=== PATIENT | female | born 1950 | race Asian ===

== ENCOUNTER 2016-10-06 12:08 | Emergency (ER) | payer OTHER ==
[2016-10-06 12:22] VITALS: RESP 18
--- NOTE | 2016-10-06 12:41 | ED ---
General Adult HPI - General Chief complaint: ENT Stated complaint: ENT Time Seen by Provider: 10/06/16 12:34 Source: patient, family, RN notes reviewed Mode of arrival: ambulatory - History of Present Illness Initial comments: Patient 65-year-old female who presents emergency room today with a chief complaint of "buzzing" to the right ear. Does admit that she is felt this noise on and off over the last week. States seems to happen daily but not all the time. Patient does admit that it's been itchy. She states that she was using a Q-tip to try to clean out the ear. She denies any drainage discharge. She denies any other complaints or symptoms. Patient denies any recent fever, chills, shortness of breath, chest pain, back pain, abdominal pain, nausea or vomiting, numbness or tingling, dysuria or hematuria, constipation or diarrhea, headaches or visual changes, or any other complaints. - Related Data Previous Rx's Medication Instructions Recorded Zybtmtcq-[id number]-[id number] Otic 2 drops RIGHT EAR TID 7 Days 10/06/16 [Cortisporin Otic Soln] amLODIPine [Norvasc] 5 mg PO DAILY #14 tab 10/06/16 Allergies Allergy/AdvReac Type Severity Reaction Status Date / Time No Known Allergies Allergy Verified 10/06/16 12:42 Review of Systems ROS Statement: Those systems with pertinent positive or pertinent negative responses have been documented in the HPI. ROS Other: All systems not noted in ROS Statement are negative. Past Medical History Past Medical History: No Reported History History of Any Multi-Drug Resistant Organisms: None Reported Past Surgical History: Joint Replacement Additional Past Surgical History / Comment(s): nose, teeth extraction Past Psychological History: No Psychological Hx Reported Smoking Status: Never smoker Past Alcohol Use History: None Reported Past Drug Use History: None Reported General Exam - General Exam Comments Initial Comments: General: The patient is awake and alert, in no distress, and does not appear acutely ill. Eye: Pupils are equal, round and reactive to light, extra-ocular movements are intact. No nystagmus. There is normal conjunctiva bilaterally. No signs of icterus. Ears, nose, mouth and throat: There are moist mucous membranes and no oral lesions. Left TM clear. Right TM does show small amount of wax. Can't see behind no sign of infection. TM clear. Patient does have small scabbed area outer ear with some redness irritation. Neck: The neck is supple. Cardiovascular: There is a regular rate and rhythm. No murmur, rub or gallop is appreciated. Respiratory: Lungs are clear to auscultation, respirations are non-labored, breath sounds are equal. No wheezes, stridor, rales, or rhonchi. Musculoskeletal: Normal ROM, no tenderness. Strength 5/5. Sensation intact. Pulses equal bilaterally 2+. Neurological: A&O x 3. CN II-XII intact, There are no obvious motor or sensory deficits. Coordination appears grossly intact. Speech is normal. Skin: Skin is warm and dry and no rashes or lesions are noted. Psychiatric: Cooperative, appropriate mood & affect, normal judgment. Course Vital Signs 10/06/16 10/06/16 12:18 12:42 Temperature 98.8 F 98.3 F Pulse Rate 78 74 Respiratory 18 18 Rate Blood Pressure 191/89 185/82 O2 Sat by Pulse 100 96 Oximetry Medical Decision Making - Medical Decision Making Patient's blood pressure remains elevated here in the emergency room. Was discussed about having blood pressure rechecked through the family doctor. Patient will be given a prescription for blood pressure medication to start. Patient is advised follow-up the family doctor the next 2 days. Advised return if any symptoms increase or worsen. Patient also given information for ENT to follow-up with as well. Disposition Clinical Impression: Elevated blood pressure reading, Buzzing in ear Disposition: HOME SELF-CARE Condition: Good Instructions: Hypertension (ED) Additional Instructions: Please use medications as prescribed and follow-up the family doctor and ENT as discussed. Please return to emergency room if any symptoms increase or worsen or for any other concerns. Prescriptions: Udgdpmoy-Rebzejmjj-Hr Otic [Cortisporin Otic Soln] 2 drops RIGHT EAR TID 7 Days amLODIPine [Norvasc] 5 mg PO DAILY #14 tab Referrals: Teressa Canada MD [Primary Care Provider] - 1-2 days Santiago Yadav MD [STAFF PHYSICIAN] - 1-2 days Time of Disposition: 12:54
[2016-10-06 12:44] VITALS: TEMP 98.3
[2016-10-06 13:05] VITALS: BP 168/79; PULSE 76
== END 2016-10-06 13:05 | disposition home or self-care (01) ==
LOC: EC 12:08
DX: I10 Essential (primary) hypertension (principal); H93.8X1 Other specified disorders of right ear; Z79.899 Other long term (current) drug therapy
CPT/HCPCS: 99282

== ENCOUNTER 2016-12-03 19:20 | Emergency (ER) | payer OTHER ==
[2016-12-03 19:26] VITALS: BP 141/99; PULSE 79; RESP 18; TEMP 97.1
--- NOTE | 2016-12-03 19:42 | ED ---
Upper Extremity HPI - General Chief Complaint: Extremity Injury, Upper Stated Complaint: fingers locking up Time Seen by Provider: 12/03/16 19:27 Source: patient, family Mode of arrival: ambulatory Limitations: no limitations, language barrier - History of Present Illness MD Complaint: Injury to:: left, finger (4th) Handedness: right Improves With: none Worsens With: none - Related Data Home Medications Medication Instructions Recorded Confirmed No Known Home Medications [No 12/03/16 12/03/16 Known Home Medications] Allergies Allergy/AdvReac Type Severity Reaction Status Date / Time No Known Allergies Allergy Verified 12/03/16 19:25 Review of Systems ROS Statement: Those systems with pertinent positive or pertinent negative responses have been documented in the HPI. ROS Other: All systems not noted in ROS Statement are negative. Musculoskeletal: Reports: other (Fourth digit locks some flexion) Neurological: Denies: weakness, numbness, paresthesias Past Medical History Past Medical History: No Reported History History of Any Multi-Drug Resistant Organisms: None Reported Past Surgical History: Joint Replacement, Orthopedic Surgery Additional Past Surgical History / Comment(s): nose, teeth extraction Past Psychological History: No Psychological Hx Reported Smoking Status: Never smoker Past Alcohol Use History: None Reported Past Drug Use History: None Reported General Exam Limitations: no limitations General appearance: alert, in no apparent distress Extremities exam: Present: normal inspection, full ROM, normal capillary refill. Absent: tenderness, pedal edema, joint swelling, calf tenderness Neurological exam: Present: alert, oriented X3, CN II-XII intact Psychiatric exam: Present: normal affect, normal mood Course Vital Signs 12/03/16 19:23 Temperature 97.1 F L Pulse Rate 79 Respiratory 18 Rate Blood Pressure 141/99 O2 Sat by Pulse 96 Oximetry Medical Decision Making - Medical Decision Making Reviewed x-ray negative for any acute changes patient and family aware should follow up with orthopedic in the near future for further eval and treatment. Disposition Clinical Impression: Trigger finger Disposition: HOME SELF-CARE Condition: Good Instructions: Trigger Finger (ED) Referrals: Teressa Canada MD [Primary Care Provider] - 1-2 days Kishor Oneill PAC [PHYSICIAN FRAUD INVESTIGATOR] - 1-2 days Time of Disposition: 19:43
--- NOTE | 2016-12-03 19:58 | XR ---
Left hand HISTORY: Pain 3 views of the left hand No comparisons There are arthropathy changes present which are mild. Bone mineralization is mildly reduced. Alignmen t is noted to be normal. Small ossific density distal to the ulna is well-corticated and not felt to be acute. IMPRESSION: Osteoarthritic changes.
== END 2016-12-03 19:55 | disposition home or self-care (01) ==
LOC: EC 19:20
DX: M65.342 Trigger finger, left ring finger (principal)
CPT/HCPCS: 99283

== ENCOUNTER → 2016-12-15 | Outpatient (CLI) | payer OTHER ==
--- NOTE | 2016-12-15 23:10 | CT ---
EXAMINATION TYPE: CT soft tissue neck wo con DATE OF EXAM: 12/15/2016 3:11 PM COMPARISON: NONE HISTORY: Patient complains of right side swelling/mass/lump, marked by BB x2 months. CT DLP: 239.3 mGycm CONTRAST: Patient injected with 0 mL of Omnipaque 300. TECHNIQUE: Axial images at 3 mm thick sections. Reconstructed images in the coronal plane and sagitt al plane are reviewed. FINDINGS: Limited CT sections are obtained the lung apices. The lung apices appear clear. CT neck: The torus tubarius and fossa of Rosenmuller are normal. Radio Engineering Teacher spaces are normal. Righ t maxillary sinus is nearly opacified with wall air-fluid level. There is opacification of anterior e thmoid air cells and right frontal sinus. Mastoid air cells are clear. Right parotid gland appears somewhat more prominent than the left. No underlying mass is identified. Submandibular glands, are normal. Parapharyngeal spaces are normal. Scattered small lymph nodes are present through the anterior and posterior cervical chains. There is an enlarged right submandibular lymph node measuring 1.3 cm. Adjacent lymph node measures 1.1 cm. The hypopharynx appears within normal limits. Vocal cord level appear symmetrical. Subglottic airway appears normal Thyromegaly is present. The isthmus is thickened. Degenerative changes are within the cervical spine. Foraminal stenosis is present on the right. BB rodriguez the right lower neck. Discrete mass at this level is not identified. Sternocleidomastoid mus cles appear symmetrical. IMPRESSIONS: 1. Thyromegaly 2. Asymmetry of the parotid glands with a prominent right parotid gland. Underlying abnormality howev er is not identified. 3. Enlarged right submandibular lymph nodes.
== END | disposition home or self-care (01) ==
LOC: RADCTMAIN 14:32
PROVIDERS: ATTEND Family Medicine
DX: E01.0 Iodine-deficiency related diffuse (endemic) goiter (principal); R59.0 Localized enlarged lymph nodes
CPT/HCPCS: 70490

== ENCOUNTER 2017-01-30 07:17 | Emergency (ER) | payer OTHER ==
[2017-01-30 07:25] VITALS: TEMP 98
--- NOTE | 2017-01-30 08:36 | ED ---
General Adult HPI - General Chief complaint: Skin/Abscess/Foreign Body Stated complaint: Abscess Time Seen by Provider: 01/30/17 08:15 Source: patient, RN notes reviewed Mode of arrival: ambulatory Limitations: no limitations - History of Present Illness Initial comments: Patient 66-year-old female who presents emergency room today with a chief complaint of possible bug bites. She does admit that over the last 2-3 days she 's been having some itching and redness to some areas to her legs crossed her stomach and a few on her shoulders. She states they appear to be burrowed complaints. Nobody else in the house has these. She states she's been very itchy she's been trying some topical creams with little relief the symptoms. Patient denies any recent fever, chills, shortness of breath, chest pain, back pain, abdominal pain, nausea or vomiting, numbness or tingling, dysuria or hematuria, constipation or diarrhea, headaches or visual changes, or any other complaints. - Related Data Previous Rx's Medication Instructions Recorded Famotidine [Pepcid] 20 mg PO BID #20 tablet 01/30/17 Hydrocortisone Cream 1 applic TOPICAL TID #1 cream..g. 01/30/17 [Hydrocortisone 1% Cream] diphenhydrAMINE [Benadryl] 1 - 2 tab PO Q6HR PRN #30 capsule 01/30/17 Allergies Allergy/AdvReac Type Severity Reaction Status Date / Time No Known Allergies Allergy Verified 01/30/17 07:51 Review of Systems ROS Statement: Those systems with pertinent positive or pertinent negative responses have been documented in the HPI. ROS Other: All systems not noted in ROS Statement are negative. Past Medical History Past Medical History: No Reported History History of Any Multi-Drug Resistant Organisms: None Reported Past Surgical History: Joint Replacement, Orthopedic Surgery Additional Past Surgical History / Comment(s): nose, teeth extraction, bilateral knee replacement, cataracts Past Psychological History: No Psychological Hx Reported Smoking Status: Never smoker Past Alcohol Use History: None Reported Past Drug Use History: None Reported General Exam - General Exam Comments Initial Comments: General: The patient is awake and alert, in no distress, and does not appear acutely ill. Eye: Pupils are equal, round and reactive to light, extra-ocular movements are intact. No nystagmus. There is normal conjunctiva bilaterally. No signs of icterus. Ears, nose, mouth and throat: There are moist mucous membranes and no oral lesions. Neck: The neck is supple, there is no tenderness or JVD. Cardiovascular: There is a regular rate and rhythm. No murmur, rub or gallop is appreciated. Respiratory: Lungs are clear to auscultation, respirations are non-labored, breath sounds are equal. No wheezes, stridor, rales, or rhonchi. Musculoskeletal: Normal ROM, no tenderness. Strength 5/5. Sensation intact. Pulses equal bilaterally 2+. Neurological: A&O x 3. CN II-XII intact, There are no obvious motor or sensory deficits. Coordination appears grossly intact. Speech is normal. Skin: Patient does have some red erythematous what appear to be bug bites located across the lower legs and a few scattered across the upper torso. There is red and inflamed mildly raised Psychiatric: Cooperative, appropriate mood & affect, normal judgment. Limitations: no limitations Course Vital Signs 01/30/17 07:23 Temperature 98.0 F Pulse Rate 85 Respiratory 20 Rate Blood Pressure 181/82 O2 Sat by Pulse 98 Oximetry Medical Decision Making - Medical Decision Making Patient will be given a prescription cream for the areas along with Benadryl and Pepcid to use. Advised that if symptoms increase or worsen to return here to the emergency room. Disposition Clinical Impression: Allergic reaction Disposition: HOME SELF-CARE Condition: Good Instructions: General Allergic Reaction (ED) Additional Instructions: Please use hydrocortisone cream to the areas as discussed along with Benadryl and Pepcid for itching. Please follow-up with family doctor or return here to the emergency room symptoms increase or worsen. Prescriptions: diphenhydrAMINE [Benadryl] 1 - 2 tab PO Q6HR PRN #30 capsule PRN Reason: Allergic Reaction Famotidine [Pepcid] 20 mg PO BID #20 tablet Hydrocortisone Cream [Hydrocortisone 1% Cream] 1 applic TOPICAL TID #1 cream..g. Referrals: Teressa Canada MD [Primary Care Provider] - 1-2 days Time of Disposition: 08:34
[2017-01-30 08:42] VITALS: BP 155/78; PULSE 77; RESP 16
== END 2017-01-30 08:42 | disposition home or self-care (01) ==
LOC: EC 07:17
DX: T78.49XA Other allergy, initial encounter (principal)
CPT/HCPCS: 99282

== ENCOUNTER → 2017-03-07 | Outpatient (CLI) | payer OTHER ==
--- NOTE | 2017-03-07 14:27 | MM ---
Reason for exam: screening (asymptomatic). Last mammogram was performed 16 years and 5 months ago. History: Patient is postmenopausal. Physical Findings: A clinical breast exam by your physician is recommended on an annual basis and results should be correlated with mammographic findings. MG Screening Mammo w CAD Bilateral CC and MLO view(s) were taken. Prior study comparison: September 29, 2015, mammogram, performed at [facility]. There are scattered fibroglandular densities. No significant changes when compared with prior studies. ASSESSMENT: Benign, BI-RAD 2 RECOMMENDATION: Routine screening mammogram of both breasts in 1 year.
== END | disposition home or self-care (01) ==
LOC: RADMAMWWP 07:58
PROVIDERS: ATTEND Obstetrics & Gynecology
DX: Z12.31 Encounter for screening mammogram for malignant neoplasm of breast (principal)